=== PATIENT | female | born 1995 ===

== ENCOUNTER 2017-09-15 11:55 | Emergency (ER) | payer BC ==
--- NOTE | 2017-09-15 12:17 | EDM.PDOC ---
ED HPI GENERAL MEDICAL PROBLEM - General Chief Complaint: Upper Extremity Injury/Pain Stated Complaint: RIGHT ARM PAIN Time Seen by Provider: 09/15/17 12:15 Source of Information: Reports: Patient - History of Present Illness INITIAL COMMENTS - FREE TEXT/NARRATIVE: HISTORY AND PHYSICAL: History of present illness: [Patient presents with right upper extremity pain 5 out of 10 worsened by movement better at rest, injury occurred last night she was walking around her vehicle slipped and fell to her bottom she reached behind her to break her fall with her right arm since she has had elbow and wrist pain, she notes she has had previous fracture of the right wrist in the remote past for his no bruising or swelling entire limb is neurovascularly intact she has pain with minimal movement of the elbow similar with the wrist No head injury or loss of consciousness no fever nausea vomiting chills sweats no chest pain shortness breath headache dizziness palpitation about a urine symptoms no other trauma described by patient ] Review of systems: As per history of present illness and below otherwise all systems reviewed and negative. Past medical history: As per history of present illness and as reviewed below otherwise noncontributory. Surgical history: As per history of present illness and as reviewed below otherwise noncontributory. Social history: No reported history of drug or alcohol abuse. Family history: As per history of present illness and as reviewed below otherwise noncontributory. Physical exam: HEENT: Atraumatic, normocephalic, pupils reactive, negative for conjunctival pallor or scleral icterus, mucous membranes moist, throat clear, neck supple, nontender, trachea midline. Lungs: Clear to auscultation, breath sounds equal bilaterally, chest nontender. Heart: S1S2, regular, negative for clicks, rubs, or JVD. Abdomen: Soft, nondistended, nontender. Negative for masses or hepatosplenomegaly. Negative for costovertebral tenderness. Pelvis: Stable nontender. Genitourinary: Deferred. Rectal: Deferred. Extremities: Atraumatic, negative for cords or calf pain. Neurovascular unremarkable. Right upper extremity shoulder is unaffected elbow decreased range of motion passively due to pain no bruising or swelli right wrist mild swelling pain with limited passive movement no bruisingng, No open lesion entire limb neurovascularly intact Neuro: Awake, alert, oriented. Cranial nerves II through XII unremarkable. Cerebellum unremarkable. Motor and sensory unremarkable throughout. Exam nonfocal. Diagnostics: [ right elbow complete Right wrist complete ]Patient declines hCG Therapeutics: [Splint rest ice ibuprofen ][place] Sling for comfort Impression: Nondisplaced radial head fracture [ right elbow pain/contusion Right wrist pain/sprain ] Definitive disposition and diagnosis as appropriate pending reevaluation and review of above. Right Arm Pain Score (Numeric/FACES): 8 - Related Data Allergies Allergy/AdvReac Type Severity Reaction Status Date / Time codeine Allergy Insomnia Verified 11/25/13 00:36 Home Meds: Home Meds . [No Known Home Meds] 11/25/13 [History] Social & Family History - Recreational Drug Use Recreational Drug Use: No Review of Systems - Review of Systems Review Of Systems: ROS reveals no pertinent complaints other than HPI. ED EXAM, GENERAL - Physical Exam Exam: See Below Course - Vital Signs Last Recorded V/S: Last Vital Signs Temp 97.8 F 09/15/17 12:08 Pulse 89 09/15/17 12:08 Resp 16 09/15/17 12:08 BP 151/85 H 09/15/17 12:08 Pulse Ox 99 09/15/17 12:08 Departure - Departure Time of Disposition: 13:31 Disposition: Home, Self-Care 01 Condition: Good Clinical Impression: Radial head fracture, closed - Discharge Information Referrals: PCP,None [Primary Care Provider] - Forms: ED Department Discharge Additional Instructions: Medication as prescribed Rest Ice 20 minute intervals 3 times daily as needed Ibuprofen 400 mg 3 times daily 7-10 days Follow-up with orthopedist, call to arrange appropriate follow-up at number provided below Sling Splint right wrist Work note provided [facility] [address], [address] [place] [address] my orthopedic The following information is given to patients seen in the emergency department who are being discharged to home. This information is to outline your options for follow-up care. We provide all patients seen in our emergency department with a follow-up referral. The need for follow-up, as well as the timing and circumstances, are variable depending upon the specifics of your emergency department visit. If you don't have a primary care physician on staff, we will provide you with a referral. We always advise you to contact your personal physician following an emergency department visit to inform them of the circumstance of the visit and for follow-up with them and/or the need for any referrals to a consulting specialist. The emergency department will also refer you to a specialist when appropriate. This referral assures that you have the opportunity for follow-up care with a specialist. All of these measure are taken in an effort to provide you with optimal care, which includes your follow-up. Under all circumstances we always encourage you to contact your private physician who remains a resource for coordinating your care. When calling for follow-up care, please make the office aware that this follow-up is from your recent emergency room visit. If for any reason you are refused follow-up, please contact the [facility] emergency department at and asked to speak to the emergency department charge nurse.
--- NOTE | 2017-09-15 13:19 | CR ---
EXAMINATION: Right elbow and right wrist HISTORY: Pain COMPARISON: None TECHNIQUE: 3 views of the right L1 3 views of the right wrist FINDINGS: There is a nondisplaced radial head fracture. There is a small to moderate elbow joint effu shivam. Radiocapitellar alignment is preserved. The wrist appears intact. Radiocarpal alignment is preserved. Mild negative ulnar variance. IMPRESSION: Nondisplaced radial head fracture noted within underlying joint effusion.
== END 2017-09-15 13:50 | disposition home or self-care (01) ==
LOC: MW.ED 11:55
DX: S52.124A Nondisplaced fracture of head of right radius, initial encounter for closed fracture (principal); S63.501A Unspecified sprain of right wrist, initial encounter; S50.01XA Contusion of right elbow, initial encounter; Z88.5 Allergy status to narcotic agent; W01.0XXA Fall on same level from slipping, tripping and stumbling without subsequent striking against object, initial encounter
CPT/HCPCS: 73080; 73110; 99283; A4566; 99282